=== PATIENT | male | born 1995 | race Two or more races ===

== ENCOUNTER 2024-02-28 19:56 | Emergency (ER) | payer OTHER ==
[~2024-02-28] VITALS: Ht 175.3 cm; Wt 90.7 kg
[2024-02-28 20:19] VITALS: TEMP 98.3
[2024-02-28 20:21] VITALS: BP 130/80; O2SAT 97
[2024-02-28] MEDS: diphenhydrAMINE HCL 50 MG/ML VIAL IV ONE (20:34)
[2024-02-28] MEDS: methylPREDNISolone SOD SUCC 125 MG/2ML VIAL IV ONE (20:35)
[2024-02-28] MEDS: IV NS 0.9% 1,000 ML IV ONE (20:35)
[2024-02-28] MEDS: FAMOTIDINE/PF INJ 20 MG/2 ML VIAL IV ONE (20:35)
== END 2024-02-28 21:24 | disposition home or self-care (01) ==
LOC: ER 20:01
DX: T78.40XA Allergy, unspecified, initial encounter (principal)
CPT/HCPCS: 99284; 96374; 96361; 96375; J1200; J3490; J2919; J7030